=== PATIENT | female | born 1990 | race Caucasian/White ===

== ENCOUNTER → 2016-07-15 | Outpatient (CLI) | payer BC ==
[~2016-07-15] MED LIST: IRON325 MG PO; MOTRIN50 MG PO; PRENATAL1 TA1 PO; SENOKOT S 50 MG1 TAB PO
== END ==
LOC: COL.RAD 07:12
DX: R10.11 Right upper quadrant pain (principal)
CPT/HCPCS: Q9967

== ENCOUNTER → 2018-11-07 | Outpatient (CLI) | payer BC | LOC: COL.RAD 13:19 | DX: N83.201 Unspecified ovarian cyst, right side (principal) ==

== ENCOUNTER 2019-12-06 22:25 | Inpatient (IN) | payer BC ==
[~2019-12-06] VITALS: Ht 154.9 cm; Wt 83.2 kg
--- NOTE | 2019-12-06 22:35 | NUR ---
2234- pt ambulatory to the unit with by her side. Pt. orientated to room and changed into go. Pt. reports GFM, no LOF, no blood and regular, painful contractions. 2240- EFM and TOCO on and tracing. Consent signed, vitals taken, assessment completed. 2247- SVE 2. Discussed plan for the evening, answered questions, call light within reach.
[2019-12-06 23:00] VITALS: BP 167/106; PULSE 74; TEMP 98.3
[2019-12-06] MEDS ORDERED: PRENATAL TABLET PO (23:03)
[2019-12-06] MEDS ORDERED: ZOLOFT 50MG50 MG PO (23:03)
[2019-12-06 23:30] VITALS: BP 172/87; PULSE 65
[2019-12-07] VITALS (31 sets, daily range): BP systolic 127–188; BP diastolic 69–115; PULSE 60–98; TEMP 97.7–98.4
[2019-12-07 00:20] LABS: BASO % 0.3 % (0.0-2.0); EOS # 0.1 (0.0-0.7); EOS % 0.4 % (0-4.0); GRAN # 9.7 (1.4-6.5); GRAN % 70.3 % (42.2-75.2); HEMATOCRIT 36.1 % (37.0-47.0); HEMOGLOBIN 12.4 g/dl (12.5-16.0); MEAN CELL VOLUME 93 fl (80.0-100.0); MEAN CORPUSCULAR HEMOGLOBIN 32 pg (27.0-31.0); MEAN CORPUSCULAR HGB CONC 34 g/dl (33.0-37.0); MEAN PLATELET VOLUME 11.4 fl (7.4-10.4); MONO # 0.9 (0.1-0.6); MONO % 6.3 % (1.7-9.3); PLATELET COUNT 272 K/mm3 (130-400); RED BLOOD COUNT 3.88 M/mm3 (4.10-5.30)
[2019-12-07 00:29] LABS: ALBUMIN 3.3 gm/dL (3.5-5.0); BILIRUBIN,TOTAL 0.3 mg/dL (0.0-1.0); CALCIUM 9.4 mg/dL (8.4-10.2); CREATININE, serum 0.91 (0.52-1.25); POTASSIUM 3.9 mmol/L (3.4-5.0); TOTAL PROTEIN 6.7 gm/dL (6.4-8.2)
--- NOTE | 2019-12-07 01:16 | NUR ---
0100- RN to bedside to reposition patient and check her. SVE 6-/-2. 0107- Radha Rosen CRNA to bedside for epidural. Pt and room set up for epidural. 0110- Pt sitting up for epidural. Maternal O2 sat on and tracing. RN remains at bedside readusting EFM and TOCO to trace. 0116- Single shot, see anesthesia record.
--- NOTE | 2019-12-07 04:12 | NUR ---
0400- Dr. Guerra on unit to review strip after discussing concerns over the phone. 0405- Priddle to bedside for SVE, complete and +2. AROM done with small amount of clear fluid noted. Pt. and room prepped for delivery. RN remains at bedside. 0412- of viable female . Infant placed to mothers abdomen, nursery nurse assumes care at this time. 0415- of placenta. Pitocin started at 333ml/hr per protocol. fundas massaged to firm by provider. Perineum intact. EBL noted to be 200. Mother and room cleaned up. 0430- recovery started.
--- NOTE | 2019-12-07 08:30 | NUR ---
0830-Reviewed continued elevated BP with who is on unit. VO to give 10mg IV labetalol now and 30mg PO Procardia XL now, change daily dose to 90mg procardia XL daily for AM. Medications given see EMAR. 0900-Patient easily up to bathroom independantly, Voids 900ml clear yellow urien. Ambulates to room 214, oriented to room and plan of care. Denies needs.
[2019-12-07] MEDS ORDERED: MOTRIN 800800 MG/TAB PO (20:11)
[2019-12-08 01:20] VITALS: BP 150/90; PULSE 89; TEMP 98.4
[2019-12-08 07:05] VITALS: BP 137/85; PULSE 91; TEMP 97.4
[2019-12-08] MEDS ORDERED: PROCARDIA XL90 MG PO (08:41)
[2019-12-08 11:48] VITALS: BP 101/63; PULSE 99; TEMP 98
--- NOTE | 2019-12-08 12:10 | NUR ---
Patient given discharge instructions. Denies questions. Plan to scheduled f/u appt for one week BP check at office. Reviewed PIH symptoms. Leaves unit ambulatoyr.
== END 2019-12-08 12:10 | disposition home or self-care (01) | DRG 807 ==
LOC: LDRO 22:25 → LDR 22:35 → OB 12-07 09:00
PROVIDERS: ADMIT Obstetrics & Gynecology
PROC: 10E0XZZ Delivery of Products of Conception, External Approach (ICD-10-PCS; principal; 2019-12-07)
PROC: 10907ZC Drainage of Amniotic Fluid, Therapeutic from Products of Conception, Via Natural or Artificial Opening (ICD-10-PCS; 2019-12-07)
DX: O14.04 Mild to moderate pre-eclampsia, complicating childbirth (principal); Z37.0 Single live birth; O69.1XX0 Labor and delivery complicated by cord around neck, with compression, not applicable or unspecified; O99.214 Obesity complicating childbirth; E66.9 Obesity, unspecified; O99.344 Other mental disorders complicating childbirth; F41.9 Anxiety disorder, unspecified; Z3A.38 38 weeks gestation of pregnancy
CPT/HCPCS: J2590; J2795; J7120